=== PATIENT | male | born 1990 | race Hispanic/Latino ===

== ENCOUNTER 2023-01-05 08:37 | Emergency (ER) | payer SELFPAY ==
[~2023-01-05] VITALS: Ht 165.1 cm; Wt 72.0 kg
[2023-01-05 09:30] VITALS: BP 136/76
== END 2023-01-05 09:35 | disposition home or self-care (01) | DRG 607 ==
LOC: EDBD 08:37 → ED 08:37
DX: L84 Corns and callosities (principal)